=== PATIENT | female | born 1975 | race Caucasian/White ===

== ENCOUNTER 2019-09-27 19:41 | Inpatient (IN) | payer OTHER ==
[~2019-09-27] VITALS: Ht 162.6 cm; Wt 105.7 kg
--- NOTE | ~2019-09-27 | CON ---
[address] [address] CONSULTATION Name: PRATEEK ARMENDARIZ Rayna Room: [address] IN ..#: [id number] Admission: 09/27/19 Attend Phys: Catrina Canas Discharge: Date of : 77 Report #: [id number] THIS REPORT FOR: //name// cc: Rosalino Fraga Vincent DO ~ THIS REPORT FOR: //name// CC: Rosalino Manuel DICTATED BY: Tati Kamara [facility] DATE OF SERVICE: 09/28/2019 Please note at the time of this dictation, the patient was seen and physically examined by myself. REASON FOR CONSULTATION: Abdominal pain, nausea, vomiting and diarrhea. HISTORY OF PRESENT ILLNESS: This is a 44-year-old female who presented to the Emergency Room. On Thursday evening, she began having an abrupt onset of abdominal pain, nausea, vomiting and diarrhea. She states that this has been consistent significantly. She denies any bright red blood or melanotic stool. She has not had any bright red blood or coffee ground emesis with her vomiting. She does take omeprazole regularly because she has had a history of gastric bypass to help with that. She has been having significant abdominal pain mainly on the right lower, but it has been somewhat generalized as well. She states on Thursday, she had a normal bowel movement. Normally, she does not have a bowel movement every day. She has to take medications for this on a regular basis to help prevent constipation. She normally goes about every couple of days, but she did have a normal bowel movement on Thursday. Thereafter, she has had a bowel movement every day, but it has been very mushy as she describes, but has not seen any blood since she has been here, but she only saw some bright red blood when she had to wipe as noted from the ER record. The patient states she did have a colonoscopy back in [address] Sprague at [facility]. She was told she had colitis, but no further medications and she has not seen him since. ALLERGIES: No known drug allergies. MEDICATIONS FROM HOME: Include: 1. Omeprazole. 2. Contrave. 3. Phentermine. 4. Levothyroxine. 5. [place] [address] CONSULTATION Name: PRATEEK ARMENDARIZ Rayna Room: [address]#: [id number] Admission: 09/27/19 Attend Phys: Catrina Canas Discharge: Date of : 77 Report #: [id number] 6. Zoloft. 7. ProAir. PAST MEDICAL HISTORY: 1. Depression. 2. Polycystic ovarian syndrome. 3. History of small bowel obstruction. 4. Diverticulitis. PAST SURGICAL HISTORY: C-sections and gastric bypass in 2015. FAMILY HISTORY: Significant maternal and paternal side of the family, colon cancer. SOCIAL HISTORY: Denies any alcohol, tobacco or illegal drug use at this time. REVIEW OF SYSTEMS: Twelve-point review of systems is essentially negative except what is mentioned in the HPI. PHYSICAL EXAMINATION: VITAL SIGNS: Temperature 37, pulse 80, respirations 16, blood pressure 110/68. HEART: Regular rate and rhythm. LUNGS: Clear. ABDOMEN: Soft, positive bowel sounds in all 4 quadrants with tenderness noted in the right lower and left side. LABORATORY DATA: Hemoglobin is 11.2, white count is 15.2, platelets 413. MCV is a little low at 74.3. GFR 78. CT of the abdomen and pelvis shows a Darleen-en-Y previous gastric surgery and abnormal wall thickening noted at the TI. IMPRESSION: 1. Abdominal pain. 2. Nausea and vomiting, which is improved. 3. Change in bowel habits to diarrhea. 4. Abnormal CT with terminal ileum wall thickening noted. 5. Family history of colon cancer, maternal and paternal side. PLAN: 1. Colonoscopy tomorrow with Dr. Apodaca. 2. We will obtain records from [facility] regarding previous colonoscopy in 2017. 3. ESR, CRP. 4. Further recommendations to be made once Dr. Apodaca sees the [place] [address] CONSULTATION Name: PRATEEK ARMENDARIZ Room: [address] IN [facility]#: [id number] Admission: 09/27/19 Attend Phys: Catrina Canas Discharge: Date of : 77 Report #: [id number] Thank you for allowing us to participate in this patient's care. Please do not hesitate to call with any questions in regards to this consult. By: [id number] Apodaca MD /nt
[~2019-09-27 19:41] MED LIST: CEFTIN500 MG; CELEXA40 MG; DIFLUCAN150 MG; DOXYCYCLINE 10100 MG; FLEXERIL PO; HYDROCODONE-AP1 EAC6 PO; IBUPROFEN 800800 M1 PO; METFORMIN HCL500 MG; NITROFURANTOIN50 M4; PROAIR HFA8.5 GM; PROVERA5 MG; ROBITUSSIN15 MG; TOPAMAX50 MG; WELLBUTRIN 100100 M1; ZOFRAN 4 MG ORAL4 M1 DIS
[2019-09-27 20:04] VITALS: BP 116/87
[2019-09-27] MEDS ORDERED: ZOLOFT100 MG PO (20:09)
[2019-09-27] MEDS ORDERED: LEVO-T25 MCG PO (20:10)
[2019-09-27] MEDS ORDERED: LAMICTAL150 MG PO (20:10)
[2019-09-27] MEDS ORDERED: OMEPRAZOLE 20 M20 M1 PO (20:11)
[2019-09-27] MEDS ORDERED: PHENTERMINE HCL30 MG PO (20:11)
[2019-09-27] MEDS ORDERED: CONTRAVE ER 8-1 EACH PO (20:11)
[2019-09-27 20:59] LABS: ABSOLUTE LYMPHOCYTES 1.6 thou/uL (0.8-5.3); ABSOLUTE MONOCYTES 0.9 thou/uL (0.0-1.2); ABSOLUTE NEUTROPHILS 12.6 thou/uL (1.6-8.1); BASOPHILS 0.1 %; EOSINOPHILS 0.1 %; HEMATOCRIT 35.8 % (37.0-47.0); HEMOGLOBIN 11.2 gm/dL (12.0-15.0); LYMPHOCYTES 10.7 %; MCH 23.2 pg (26.0-34.0); MCHC 31.2 g/dL (28.0-37.0); MCV 74.3 fL (80.0-100.0); MONOCYTES 6.1 %; MPV 7.3 fl. (7.2-11.1); NUCLEATED RBCS 0 /100WBC; PLATELET COUNT* 413 thou/uL (150-400); RBC 4.81 mil/uL (4.20-5.00); RDW-CV 16.7 % (10.5-14.5); WBC 15.2 thou/uL (4.0-11.0)
[2019-09-27 21:01] LABS: URINE BLOOD 3+ (Negative); URINE CLARITY CLEAR; URINE COLOR YELLOW; URINE GLUCOSE-RANDOM NEGATIVE (Negative); URINE KETONES NEGATIVE (Negative); URINE LEUKOCYTES-REFLEX NEGATIVE (Negative); URINE NITRITE-REFLEX NEGATIVE (Negative); URINE PROTEIN NEGATIVE (Negative); URINE SPECIFIC GRAVITY >= 1.030 (1.005-1.030); URINE UROBILINOGEN 0.2 E.U./dl (0.2-1.0)
[2019-09-27 21:04] LABS: CALCIUM 8.9 mg/dL (8.5-10.1); CREATININE 0.8 mg/dL (0.6-1.3); POTASSIUM 4.1 mmol/L (3.5-5.1)
[2019-09-27 21:08] LABS: ALBUMIN 4.2 g/dL (3.4-5.0); TOTAL BILIRUBIN 0.2 mg/dL (<0.1-1.0); TOTAL PROTEIN 8.3 g/dL (6.4-8.2)
[2019-09-27 21:10] LABS: URINE BILIRUBIN 1+ (Negative)
[2019-09-27 21:11] LABS: ICTOTEST (BILI CONFIRMATORY) Negative (Negative)
[2019-09-27 21:17] LABS: HYALINE CASTS 0-3 Few /LPF (None Seen); MUCUS 4-6 Moderate strn/LPF (None Seen); SQUAMOUS 4-10 Moderate /LPF (0-3)
[2019-09-27 21:18] LABS: URINE RBC 3-10 Few /HPF (0-2)
[2019-09-27 21:19] LABS: BACTERIA-REFLEX 1-9 Few /HPF (None Seen); CALCIUM OXALATE 4-10 Moderate /LPF (None Seen)
[2019-09-27 21:20] LABS: URINE WBC-REFLEX 0-5 Rare /HPF (0-5)
[2019-09-28] VITALS (7 sets, daily range): BP systolic 99–118; BP diastolic 58–80
[2019-09-28] MEDS ORDERED: XANAX1 MG PO (10:13)
[2019-09-28] MEDS ORDERED: VERAPAMIL HCL40 MG PO (10:14)
[2019-09-28] MEDS ORDERED: BOTOX100 UNIT IM (10:15)
[2019-09-28] MEDS ORDERED: IMITREX100 MG PO (10:16)
--- NOTE | 2019-09-28 10:33 | EKG ---
[place] [address] ELECTROCARDIOGRAM REPORT Name: PAVAN ARM[address]LAUDIA Way Room: [place] [address] ADM IN [facility]#: [id number] Admission: 09/27/19 Attend Phys: Daniel Manuel Discharge: Date of : 77 Date of Service: 09/27/192108 Report #: [id number] THIS REPORT FOR: //name// [facility] ED Test Date: 2019-09-27 Test Time: 21:09:10 Pat Name: PRATEEK ARMENDARIZ Department: Room: [facility] Gender: F Fueler: : 1975 Requested By: Kristan Morin Order Number: [id number] MD: Jonah Burnett Measurements Intervals Armstrong Rate: 81 P: 43 AK: 145 QRS: 13 QRSD: 92 T: 17 QT: 386 QTc: 448 Interpretive Statements Sinus rhythm No previous ECG available for comparison Electronically Signed On 09-28-2019 10:32:56 PRODUCT INTRODUCTION MANAGER by Jonah Burnett [email or web address] <ELECTRONICALLY SIGNED> By: Jonah Burnett MD, [facility] 09/28/19 1032 08 08 Jonah Burnett MD, FACC /EPI
[2019-09-28] MEDS ORDERED: ZEMBRACE S3 MG/0.5 M SUBQ (11:47)
[2019-09-29 06:00] LABS: HEMATOCRIT 30.1 % (37.0-47.0); HEMOGLOBIN 9.7 gm/dL (12.0-15.0); MCH 23.8 pg (26.0-34.0); MCHC 32.2 g/dL (28.0-37.0); MPV 7.3 fl. (7.2-11.1); RBC 4.06 mil/uL (4.20-5.00); RDW-CV 16.5 % (10.5-14.5); WBC 9.4 thou/uL (4.0-11.0)
[2019-09-29 06:13] LABS: CREATININE 0.6 mg/dL (0.6-1.3); MAGNESIUM 1.7 mg/dL (1.8-2.4); POTASSIUM 3.8 mmol/L (3.5-5.1)
[2019-09-29 09:00] VITALS: BP 100/69
[2019-09-29 16:29] VITALS: BP 124/77; BP 153/83
[2019-09-29 20:27] VITALS: BP 112/71
[2019-09-30 02:22] VITALS: BP 112/71
[2019-09-30 04:59] LABS: CALCIUM 7.8 mg/dL (8.5-10.1); CREATININE 0.6 mg/dL (0.6-1.3); MAGNESIUM 1.6 mg/dL (1.8-2.4); POTASSIUM 3.1 mmol/L (3.5-5.1); TOTAL BILIRUBIN 0.3 mg/dL (<0.1-1.0)
[2019-09-30 05:06] LABS: HEMATOCRIT 26.9 % (37.0-47.0); HEMOGLOBIN 8.8 gm/dL (12.0-15.0); MCH 24.3 pg (26.0-34.0); MCHC 32.8 g/dL (28.0-37.0); MCV 74.2 fL (80.0-100.0); MPV 7.4 fl. (7.2-11.1); RBC 3.63 mil/uL (4.20-5.00); RDW-CV 16.6 % (10.5-14.5); WBC 8.8 thou/uL (4.0-11.0)
[2019-09-30] MEDS ORDERED: CIPRO500 MG PO (10:57)
[2019-09-30] MEDS ORDERED: FLAGYL500 M1 PO (10:57)
[2019-09-30 13:27] VITALS: BP 112/71
[2019-09-30 14:34] VITALS: BP 112/71
[2019-09-30 15:04] VITALS: BP 113/75
[2019-09-30 16:14] VITALS: BP 112/71
--- NOTE | 2019-10-04 14:07 | PATH ---
[facility] [address] [place] [address] PATHOLOGY RPT PROCEDURE Name: PRATEEK DASILVA Room: [address] IN .R.#: [id number] Admission: 09/27/19 Date of : 77 Discharge: 09/30/19 Report #: [id number] Path Case #: [id number] [facility] Accession Number: [id number] . 01 Material submitted: . colon - RANDOM COLON BIOPSIES . 01 Clinical history: . None provided. . 02 Diagnosis: Random colon biopsies: - Normal colonic mucosa. . (MARCELINO:mml; 10/03/2019) [facility] 10/03/2019 1601 Local . 02 Electronically signed: . Matti Thao MD, Pathologist NPI- [id number] . 01 Gross description: . Received in formalin labeled "Prateek Dasilva random colon biopsies" is a 0.9 x 0.6 x 0.1 cm aggregate of douglass-brown soft tissue fragments. The specimen is submitted entirely in A1. ([facility]; 10/02/2019) [facility] 10/02/2019 1112 Local . 02 Pathologist provided ICD-10: K52.9, R11.2, D72.819 . 02 CPT . 934641 Specimen Comment: A courtesy copy of this report has been sent to [phone], [phone] Specimen Comment: [phone], Specimen Comment: Report sent to ,DR JAIMES / DR GRIFFIN Performed at: [address] [facility] [address], [place], [place] [id number] MD Jasiel Loya MD Phone: [phone] Performed at: 02 [facility] [place] [address] [address] [employer], [place] [id number] MD Matti Thao MD Phone: [phone]
== END 2019-09-30 16:10 | disposition home or self-care (01) | DRG 372 ==
LOC: M.ERS 19:41 → M.3W 22:48 → M.TBA-ER 22:48 → M.3W 09-28 11:05
PROVIDERS: Internal Medicine; Nurse Practitioner Family; ADMIT Internal Medicine
PROC: 0DBB8ZX Excision of Ileum, Via Natural or Artificial Opening Endoscopic, Diagnostic (ICD-10-PCS; principal; 2019-09-30)
DX: A04.9 Bacterial intestinal infection, unspecified (principal); Z68.41 Body mass index [BMI] 40.0-44.9, adult; E66.01 Morbid (severe) obesity due to excess calories; F32.9 Major depressive disorder, single episode, unspecified; G43.909 Migraine, unspecified, not intractable, without status migrainosus; K64.8 Other hemorrhoids; Z80.0 Family history of malignant neoplasm of digestive organs; Z79.899 Other long term (current) drug therapy